=== PATIENT | female | born 1970 | race Caucasian/White ===

== ENCOUNTER 2019-10-13 12:53 | Inpatient (IN) | payer BC ==
[2019-10-13] MEDS ORDERED: MORPHINE 4 MG/ML SYR ONE (14:21)
[2019-10-13] MEDS ORDERED: ONDANSETRON 4 MG/2 ML VIAL ONE ×2 (14:21→16:43)
[2019-10-13 14:54] LABS: Albumin 3.3 g/dL (3.4-5.0); Bilirubin Direct 0.8 mg/dL (0-0.2); Bilirubin Total 2.7 mg/dL (0.2-1.0); Potassium 3.2 mmol/L (3.5-5.1); Protein, Total 7.4 g/dL (6.4-8.2)
[2019-10-13 15:06] LABS: Urine Bacteria >50 /HPF (<20); Urine Culture Reflex Order NOT NEEDED; Urine Mucus 1+ /HPF (NONE SEEN); Urine RBC <5 /HPF (NONE SEEN)
[2019-10-13 15:06] LABS: Urine Blood TRACE (NEG); Urine Glucose NEGATIVE (NEG); Urine Protein NEGATIVE (NEG)
[2019-10-13] MEDS ORDERED: MEPERIDINE HCL 50 MG/ML ONE (15:14)
[2019-10-13 15:17] LABS: Absolute Lymphocytes (CBC) 0.8 K/uL (0.7-4.9); Basophils % 0.7 % (0-1.3); Hematocrit 37.7 % (36.0-45.0); Lymphocytes % 10.9 % (15.3-44.8); MPV 7.3 fL (7.6-11.3); RBC Red Blood Cell Count 4.07 M/uL (3.86-4.86)
--- NOTE | 2019-10-13 15:45 | RAD REPORT ---
EXAM DESCRIPTION: CT - Abdomen Pelvis W Contrast - 10/13/2019 3:24 pm CLINICAL HISTORY: Abdominal pain COMPARISON: none. TECHNIQUE: Computed axial tomography of the abdomen pelvis was obtained. 100 cc Isovue-300 was admin istered intravenously. Oral contrast was not requested which limits evaluation of bowel. All CT scans are performed using dose optimization technique as appropriate and may include automated exposure control or mA/KV adjustment according to patient size. FINDINGS: The liver, spleen, pancreas, adrenal and kidneys appear unremarkable. Several small appendicoliths. The appendix extends superiorly from the cecum. The appendix is dilated . Several air bubbles lie adjacent to the appendix. Marked surrounding inflammatory changes. Small to moderate amount of ascites Umbilical hernia containing fat. Mild stranding within the fat may indicate inflammation. The neck me asures 18 millimeters. IMPRESSION: Perforated appendicitis
[2019-10-13] MEDS ORDERED: CEFTRIAXONE 1000 MG/VIAL ONE (16:05)
[2019-10-13] MEDS ORDERED: NA CHLORIDE 0.9% 1,000 ML ONE (16:12)
[2019-10-13] MEDS ORDERED: PIPER/TAZO/NS 3.375gm 3.375 GM/100 ML BAG ONE (16:12)
--- NOTE | 2019-10-13 16:12 | ER ---
Nurse's Notes [facility] Name: Tammy Gil Age: 49 yrs Sex: Female : 1970 Arrival Date: 10/13/2019 Time: 12:58 Bed 24 Private MD: Diagnosis: Acute appendicitis with generalized peritonitis-with perforation Presentation: 10/13 12:58 Presenting complaint: Patient states: diffuse abd pain, nausea started last night. sv Transition of care: patient was not received from another setting of care. Onset of symptoms was October 12, 2019. Care prior to arrival: None. 12:58 Method Of Arrival: Wheelchair sv 12:58 Acuity: WILFRID 3 sv 13:00 Initial Sepsis Screen: Does the patient meet any 2 criteria? No. Patient's initial ls4 sepsis screen is negative. Does the patient have a suspected source of infection? No. Patient's initial sepsis screen is negative. 22:57 Risk Assessment: Do you want to hurt yourself or someone else? Patient reports no ls4 desire to harm self or others. Triage Assessment: 14:03 General: Appears uncomfortable, Behavior is cooperative, flat. 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 - Social history:: Smoking status: Patient/guardian denies using tobacco. - Ebola Screening: : No symptoms or risks identified at this time. Screenin:00 Abuse screen: Denies threats or abuse. Denies injuries from another. Nutritional ls4 screening: No deficits noted. Tuberculosis screening: No symptoms or risk factors identified. Fall Risk None identified. Assessment: 13:10 Pain: Complains of pain in abdomen Pain currently is 10 out of 10 on a pain scale. ls4 Neuro: No deficits noted. Cardiovascular: No deficits noted. Respiratory: No deficits noted. GI: Bowel sounds hypoactive in right upper quadrant, left upper quadrant, right lower quadrant and left lower quadrant Abdomen is tender to palpation X 4 quads. Guarding noted. : No deficits noted. 14:34 Reassessment: Patient and/or family updated on plan of care and expected duration. Pain ls4 level reassessed. Vital Signs: 13:00 BP 123 / 64; Pulse 92; Resp 22; Temp 98.5; Pulse Ox 100% ; Weight 81.65 kg; Height 5 sv ft. 6 in. (167.64 cm); 14:33 BP 122 / 60; Pulse 78; Resp 20; Temp 98.4; Pulse Ox 100% on R/A; Pain 9/10; ls4 13:00 Body Mass Index 29.05 (81.65 kg, 167.64 cm) sv ED Course: 12:58 Patient arrived in ED. as 13:00 Triage completed. sv 13:00 Patient has correct armband on for positive identification. Bed in low position. Call ls4 light in reach. Side rails up X 1. 13:00 No provider procedures requiring assistance completed. ls4 13:01 Arm band placed on. sv 13:10 potline monitor on. Pulse ox on. NIBP on. Warm blanket given. Pillow given. Verbal ls4 reassurance given. Diet: Patient is NPO. 13:53 Moose Leos FNP-C is PHCP. la1 13:53 Bennett Chirinos MD is Attending Physician. la1 14:01 Karma Kearney, JENNIFER is Primary Nurse. ls4 14:12 Initial lab(s) drawn, by me. Inserted saline lock: 20 gauge in right antecubital area, ls4 using aseptic technique. Blood collected. 14:42 Urine Culture Sent. lt1 14:43 Urine Microscopic Only Sent. lt1 15:25 CT Abd/Pelvis - IV Contrast Only In Process Unspecified. EDMS 16:11 Octavio Crowley MD is Hospitalizing Provider. la1 16:57 intact. ls4 Administered Medications: 14:32 Drug: morphine 4 mg Route: IVP; Site: right antecubital; ls4 14:32 Drug: Zofran 4 mg Route: IVP; Site: right antecubital; ls4 14:32 Drug: NS 0.9% 1000 ml Route: IV; Rate: 1000 ml; Site: right antecubital; ls4 14:55 Drug: Demerol 50 mg Route: IVP; Site: right antecubital; ls4 15:50 Drug: Rocephin 1 grams Route: IV; Rate: calculated rate; Site: right antecubital; ls4 16:10 Drug: Zosyn 3.375 grams Route: IVPB; Infused Over: 60 mins; Site: right antecubital; ls4 Outcome: 16:12 Decision to Hospitalize by Provider. la1 16:57 Patient left the ED. ss 16:57 Admitted to OR accompanied by nurse, family with patient, via stretcher, with chart, ls4 Report called to OR NURSE AT BEDSIDE. 16:57 Condition: unchanged ls4 16:57 Discharge instructions given to patient, family, Instructed on the need for admit, ls4 Demonstrated understanding of instructions. Signatures: Dispatcher [employer] EDCaro Mortensen, RN RN Portia Edwards Shelby, RN RN ss Moose Leos, FOUR SLIDE MACHINE OPERATOR-C FOUR SLIDE MACHINE OPERATOR-Christine1 Karma Kearney RN RN ls4 Taryn Moon [facility]
--- NOTE | 2019-10-13 16:13 | EDPHYS ---
Physician Documentation [facility] Name: Tammy Gil Age: 49 yrs Sex: Female : 1970 Arrival Date: 10/13/2019 Time: 12:58 Bed 24 Private MD: TRINO Physician Bennett Chirinos HPI: 10/13 14:25 This 49 yrs old Female presents to ER via Wheelchair with complaints of la1 Abdominal Pain. 14:31 This 49 yrs old Female presents to ER via Wheelchair with complaints of la1 Abdominal Pain. 14:25 The patient presents with abdominal pain. la1 14:31 The patient presents with abdominal pain that is diffuse. Onset: The symptoms/episode la1 began/occurred this morning. The symptoms do not radiate. Associated signs and symptoms: Pertinent positives: nausea, Pertinent negatives: diarrhea, vomiting. The symptoms are described as sharp. Modifying factors: The symptoms are alleviated by nothing, the symptoms are aggravated by nothing. Severity of pain: At its worst the pain was severe. The patient has not experienced similar symptoms in the past. MANAGER CATH LAB: 13:00 LMP N/A - Hysterectomy ls4 Historical: - Allergies: 13:00 No Known Allergies; sv - PMHx: 13:00 None; sv - PSHx: 13:00 ; sv - Immunization history:: Adult Immunizations up to date. - Social history:: Smoking status: Patient/guardian denies using tobacco. - Ebola Screening: : No symptoms or risks identified at this time. ROS: 14:32 Constitutional: Negative for fever, chills, and weight loss, Eyes: Negative for injury, la1 pain, redness, and discharge, ENT: Negative for injury, pain, and discharge, Neck: Negative for injury, pain, and swelling, Cardiovascular: Negative for chest pain, palpitations, and edema, Respiratory: Negative for shortness of breath, cough, wheezing, and pleuritic chest pain, Back: Negative for injury and pain, : Negative for injury, bleeding, discharge, and swelling, MS/Extremity: Negative for injury and deformity, Neuro: Negative for headache, weakness, numbness, tingling, and seizure. 14:32 Abdomen/GI: Positive for abdominal pain, nausea. Exam: 14:32 Constitutional: This is a well developed, well nourished patient who is awake, alert, la1 and in no acute distress. Head/Face: Normocephalic, atraumatic. Eyes: Pupils equal round and reactive to light, extra-ocular motions intact. Periorbital areas with no swelling, redness, or edema. ENT: Mucous membranes moist. Neck: Trachea midline, no thyromegaly or masses palpated, and no cervical lymphadenopathy. Supple, full range of motion without nuchal rigidity, or vertebral point tenderness. No Meningismus. Chest/axilla: Normal chest wall appearance and motion. Nontender with no deformity. No lesions are appreciated. Cardiovascular: Regular rate and rhythm with a normal S1 and S2. No gallops, murmurs, or rubs. Normal PMI, no JVD. No pulse deficits. Respiratory: Lungs have equal breath sounds bilaterally, clear to auscultation. No rales, rhonchi or wheezes noted. No increased work of breathing, no retractions or nasal flaring. Back: No spinal tenderness. No costovertebral tenderness. Full range of motion. 14:32 Abdomen/GI: Inspection: obese Bowel sounds: normal, in all quadrants, Palpation: soft, in all quadrants, moderate abdominal tenderness, in all quadrants. Vital Signs: 13:00 BP 123 / 64; Pulse 92; Resp 22; Temp 98.5; Pulse Ox 100% ; Weight 81.65 kg; Height 5 sv ft. 6 in. (167.64 cm); 14:33 BP 122 / 60; Pulse 78; Resp 20; Temp 98.4; Pulse Ox 100% on R/A; Pain 9/10; ls4 13:00 Body Mass Index 29.05 (81.65 kg, 167.64 cm) sv MDM: 13:54 Patient medically screened. la1 16:09 Differential diagnosis: AAA, acute coronary syndrome, appendicitis, bowel obstruction, la1 cholecystitis, Cholelithiasis, diverticulitis, Endometriosis, gastritis, gastroesophageal reflux disease, GI Bleed. Data reviewed: vital signs, nurses notes, lab test result(s), radiologic studies, I have discussed the patient's presentation/case with the attending Emergency Department Physician; and as a result, I will admit patient. Data interpreted: Pulse oximetry: on room air is 100 %. Counseling: I had a detailed discussion with the patient and/or guardian regarding: the historical points, exam findings, and any diagnostic results supporting the discharge/admit diagnosis, lab results, radiology results, the need for further work-up and treatment in the hospital. Physician consultation: Octavio Crowley MD was called at 16:00, was contacted at 16:00, regarding admission, to the operating room, and will see patient in ED, immediately, in the emergency department to see patient at 16:10. 10/13 14:19 Order name: Basic Metabolic Panel; Complete Time: 15:14 10/13 14:19 Order name: CBC with Diff; Complete Time: 15:26 10/13 14:19 Order name: Creatinine for Radiology; Complete Time: 15:14 10/13 14:19 Order name: Hepatic Function; Complete Time: 15:14 10/13 14:19 Order name: Lipase; Complete Time: 15:14 10/13 14:31 Order name: Urine Microscopic Only; Complete Time: 15:14 10/13 14:19 Order name: CT Abd/Pelvis - IV Contrast Only; Complete Time: 15:54 10/13 14:31 Order name: Urine Culture 10/13 14:34 Order name: Urine Dipstick--Ancillary (enter results); Complete Time: 15:14 10/13 14:34 Order name: Urine --Ancillary (enter results); Complete Time: 15:14 10/13 14:19 Order name: IV Saline Lock; Complete Time: 14:33 10/13 14:19 Order name: Labs collected and sent; Complete Time: 14:33 10/13 14:19 Order name: Urine Test (obtain specimen); Complete Time: 14:33 10/13 14:19 Order name: Urine Dipstick-Ancillary (obtain specimen); Complete Time: 14:33 la Administered Medications: 14:32 Drug: morphine 4 mg Route: IVP; Site: right antecubital; ls4 14:32 Drug: Zofran 4 mg Route: IVP; Site: right antecubital; ls4 14:32 Drug: NS 0.9% 1000 ml Route: IV; Rate: 1000 ml; Site: right antecubital; ls4 14:55 Drug: Demerol 50 mg Route: IVP; Site: right antecubital; ls4 15:50 Drug: Rocephin 1 grams Route: IV; Rate: calculated rate; Site: right antecubital; ls4 16:10 Drug: Zosyn 3.375 grams Route: IVPB; Infused Over: 60 mins; Site: right antecubital; ls4 Disposition: 10/14 06:08 Co-signature as Attending Physician, Bennett Chirinos MD I agree with the assessment and luther plan of care. Disposition: 10/13/19 16:12 Hospitalization ordered by Octavio Crowley for Inpatient Admission. Preliminary diagnosis is Acute appendicitis with generalized peritonitis - with perforation. - Bed requested for Operating Room. - Status is Inpatient Admission. ss - Condition is Stable. - Problem is new. - Symptoms are unchanged. UTI on Admission? Yes Signatures: Dispatcher [employer] EDMS Caro Vogel, RN Bennett Johnson MD MD cha Smirch, Shelby, RN RN ss Moose Leos, MANAGER COMBINATION-C MANAGER COMBINATION-Cla1 Karma Kearney RN RN ls4 Corrections: (The following items were deleted from the chart) 10/13 16:57 16:12 Hospitalization Ordered by Octavio Crowley MD for Inpatient Admission. Preliminary ss diagnosis is Acute appendicitis with generalized peritonitis - with perforation. Bed requested for Operating Room. Status is Inpatient Admission. Condition is Stable. Problem is new. Symptoms are unchanged. UTI on Admission? Yes. la1
[2019-10-13] MEDS ORDERED: propofoL 200 MG/20 ML VIAL IV ONE (16:42)
[2019-10-13] MEDS ORDERED: FENTANYL CITR 100 MCG/2 ML ONE (16:42)
[2019-10-13] MEDS ORDERED: GLYCOPYRROLATE 0.2 MG/ML SYR ONE ×2 (16:43)
[2019-10-13] MEDS ORDERED: MIDAZOLAM HCL 2 MG/2 ML INJ ONE (16:43)
[2019-10-13] MEDS ORDERED: KETOROLAC 30 MG/ML INJ ONE (16:44)
[2019-10-13] MEDS ORDERED: MORPHINE 10 MG/ML VIAL ONE (16:44)
[2019-10-13] MEDS ORDERED: LIDOCAINE 1% MPF 5 ML VIAL ONE (16:44)
[2019-10-13] MEDS ORDERED: ROCURONIUM 50 MG/5 ML VIAL IV ONE (16:44)
[2019-10-13] MEDS ORDERED: BUPIVACAINE 0.25% PF 30 ML VIAL ONE (17:08)
[2019-10-13] MEDS ORDERED: BUPIVACA 0.5%/EPI 0.0005%/PF 30 ML VIAL ONE (17:21)
[2019-10-13] MEDS: Ringers Lactate 1,000 ML IV ONE ×3 (17:53→17:58)
--- NOTE | 2019-10-13 18:14 | P.OP ---
Preoperative diagnosis: Acute Perforated Appendicitis Postoperative diagnosis: Acute Perforated Appendicitis Primary procedure: Laparoscopic Appendectomy Secondary procedure: Laparoscopic Abdominal Washout Other procedure(s): Laparoscopic Adhesiolysis and Reduction of Umbilical Hernia Estimated blood loss: <5cc Specimen: Vermiform Appendix Findings: Umbilical hernia containing omentum, Acute Perforated Appendicitis Complications: None Transferred to: Recovery Room Condition: Good
[2019-10-13] MEDS ORDERED: HYDROCODONE/APAP 7.5/325 MG TAB PO PRN (18:17)
[2019-10-13] MEDS ORDERED: HYDROMORPHONE HCL 1 MG/ML INJ IV PRN (18:17)
[2019-10-13] MEDS: HYDROMORPHONE HCL 2 MG/ML inj ONE ×4 (18:25→19:00)
[2019-10-13] MEDS ORDERED: PROMETHAZINE INJ 25 MG/ML AMP ONE (19:06)
[2019-10-13] MEDS: Ringers Lactate 1,000 ML IV SCH (19:53)
[2019-10-13] MEDS: INSULIN -REGULAR HUMAN 50 UNIT/0.5 ML ML SQ SCH (20:48)
[2019-10-13 21:20] VITALS: BMI 29.0
--- NOTE | 2019-10-13 23:14 | OP ---
Date of Procedure: 10/13/2019 Surgeon: Octavio Crowley MD, Preoperative Diagnosis: Acute perforated appendicitis. Postoperative Diagnosis: Acute perforated appendicitis. Procedure Performed: 1.Laparoscopic appendectomy. 2.Laparoscopic abdominal washout. 3.Laparoscopic adhesiolysis and reduction of umbilical hernia. Estimated Blood Loss: Less than 5 mL. Specimen: Vermiform appendix. Findings: 1.Umbilical hernia containing omentum. 2.Acute perforated appendicitis. Complications: None, transferred to recovery room in good condition. Procedure In Detail: After informed consent was obtained, patient was brought to the operating room, prepped and draped in the usual sterile fashion. After adequate anesthesia achieved, an infraumbili jackson area was anesthetized with 0.25% Marcaine, sharply incised. A 5-mm trocar was introduced in the abdomen without evidence of complication. Insufflation was obtained to 15 mmHg at this time. The ar ea was inspected. There was no injury to vital structures upon entry to the abdomen. Two additional trocars were chosen, one in the right lower quadrant, one in the left lower quadrant. This was floyd larly anesthetized and sharply incised. A 5 mm trocars were introduced in the abdomen without eviden ce of complication. The umbilical trocar was then up-sized to a 12 mm under direct visualization wit hout evidence of complication. Patient was positioned in head down, right side up position. Ratchet ed grasper was used to locate the patient's appendix, was found to be grossly perforated in the right lower quadrant. It was dissected free from the abdominal wall as well as mobilizing portions of the sidewall of the colon along the right colic gutter using the LigaSure device just slightly. Umbilic al hernia was in the way and the omentum was entrapped within this umbilical hernia and as such, a gr asper used to grasp and reduce the hernia and LigaSure was used to ligate the hernia from the hernia sac and the omentum was returned to the normal anatomic position. At this point, then I grasped the appendix, elevated and created a mesoappendiceal window with the [place] retractor and a GARRETT 35 blue load was fired across the base the appendix, good approximation of tissues. The mesoappendix was th en ligated using the LigaSure device. The appendix was then placed in the EndoCatch bag, removed the umbilical trocar, was sent off for pathologic examination. The area was copiously irrigated with ap proximately 3 L of saline until completely clear. The entire abdomen was irrigated at this time lapa roscopically and the patient was positioned in multiple times in multiple different positions to allo w for adequate irrigation and suctioning of the entire contents. After this was performed, the stapl e line was inspected, found to be in good anatomic position without any leakage. The omentum was wra pped around this area and the patient was positioned in neutral position. The remainder of the efflu ent was irrigated out. The umbilical trocar was then inspected. The umbilical trocar was removed an d the umbilical trocar site was closed using a Jerad-Sejal suture passer with 0 Vicryl in interru pted fashion. Good approximation of tissues. The abdomen was then completely desufflated under dire ct visualization without evidence of complication. All trocars were then removed under direct visual ization without evidence of complication. All skin incisions copiously irrigated and closed with a 4 -0 Monocryl in a running fashion. Dermabond placed over top. Patient tolerated procedure well witho ut complication, transferred to PACU in good condition. All counts were correct at the end of case. MARIANELA/LEONARDAL Voice ID: [id number] Report ID: [id number]
[2019-10-13] MEDS ORDERED: PIPER/TAZO/NS 3.375gm 6.750 GM/200 ML BAG ONE (23:27)
[2019-10-13] MEDS: PIPER/TAZO/NS 3.375gm 3.375 GM/100 ML BAG IVPB SCH (23:33)
--- NOTE | 2019-10-14 02:22 | HP ---
Date of Admission: 10/13/2019 Brief History Of Present Illness: Patient is a 49-year-old female who developed abdominal pain beginning yesterday around periumbilical region, however, located in the right lower quadrant, p ain got significantly worse around noon time as such she came to the emergency room with the above-st ated complaints. Patient states that she has never had pain like this before. No sick contacts. No recent travel. Past Medical History: Negative. Past Surgical History: She had a emergently. Allergies: NO KNOWN DRUG ALLERGIES. Medications: None. Social History: She denies smoking, alcohol, or recreational drug use. Review of Systems: A 10-point review of systems other than HPI she admits to fever, chills and some mild low-grade nause a. Physical Examination: Vital signs: At time of examination, blood pressure 123/64, pulse 92, respiratory rate 22, temperatu re 98.5. General: She is awake, alert, oriented. Psychiatric: She is appropriate and conversive. HEENT: She is normocephalic, sclerae icteric. Mucous is moist. Oropharynx clear. Neck: Supple. No JVD. Chest: Normal expansion and excursion. Cardiovascular: Regular rate and rhythm. Pulmonary: Clear to auscultation bilaterally. Abdomen: Soft with positive right lower quadrant focal peritonitis and positive voluntary guarding. Positive involuntary guarding. She has a well-healed lower midline scar as well as umbilical hernia which contains fat. I am unable to reduce it because the patient's generalized abdominal pain at th is time. She has diffuse pain throughout her abdomen and has grossly peritoneal signs, but worse in the right lower quadrant. Extremities: No clubbing, cyanosis, edema. Skin: Warm and dry. Laboratory Data: Reveals a white blood cell count of 7.2, hemoglobin 13.2, hematocrit of 37.7, plate let count is 312, neutrophils 84%. Her sodium 139, potassium 3.2, chloride 107, carbon dioxide 23, B UN 9, creatinine 0.9, glucose is 118, total bilirubin 2.7, direct bilirubin 0.8, AST 103, ALT 99, alk suri phosphatase 123, lipase of 92. UA showed positive nitrite, positive white blood cell count, an d positive bacteria greater than 50. Urine test was negative. She had a CT scan for the a bdomen and pelvis, which shows several small appendicolith. The appendix extends superiorly from the cecum. The appendix was dilated, some of air bubbles lie adjacent to the appendix. Marked surround ing inflammatory changes, small to moderate amount of ascites, umbilical hernia containing fat. Mild stranding within the fat may indicate inflammation. Neck measures 18 mm. This is consistent with a perforated appendicitis. Assessment And Plan: 1.IV fluid hydration. 2.Antibiotic coverage with Zosyn 3.375 IV q.6. 3.I have explained risks, benefits, alternatives laparoscopic possible open appendectomy including b ut not limited to bleeding, infection, damage to surrounding tissues, need for further operation and procedures, the patient agrees to proceed as indicated. MARIANELA/CRISTIANO Voice ID: [id number]
[2019-10-14] MEDS: Ringers Lactate 1,000 ML IV SCH ×2 (04:23→17:06)
[2019-10-14] MEDS: PIPER/TAZO/NS 3.375gm 3.375 GM/100 ML BAG IVPB SCH ×4 (05:11→23:52)
[2019-10-14 05:56] LABS: Magnesium 2.1 mg/dL (1.8-2.4); Phosphorus 2.7 mg/dL (2.5-4.9); Potassium 3.9 mmol/L (3.5-5.1)
[2019-10-14 06:06] LABS: Absolute Lymphocytes (CBC) 0.7 K/uL (0.7-4.9); Basophils % 0.1 % (0-1.3); Hematocrit 30.3 % (36.0-45.0); Lymphocytes % 8.5 % (15.3-44.8); MPV 7.3 fL (7.6-11.3); RBC Red Blood Cell Count 3.24 M/uL (3.86-4.86)
[2019-10-14] MEDS: INSULIN -REGULAR HUMAN 50 UNIT/0.5 ML ML SQ SCH ×4 (07:30→21:00)
[2019-10-14] MEDS ORDERED: INFLUENZA VACCINE (for 3y+) 0.5 ML DOSE IMVAC ONE (08:00)
[2019-10-14] MEDS: ENOXAPARIN 40 MG/0.4 ML SQ SCH (08:50)
[2019-10-14] MEDS ORDERED: POTASSIUM CL SA 10 MEQ TAB PO ONE (09:00)
--- NOTE | 2019-10-14 10:59 | EKG ---
Test Date: 2019-10-14 Test Time: 08:56:02 Director Digital Advertising: CRISELDA MEASUREMENT RESULTS: Intervals: Rate: 119 MN: 148 QRSD: 76 QT: 278 QTc: 391 [place]: P: 49 MN: 148 QRS: 54 T: 21 INTERPRETIVE STATEMENTS: Sinus tachycardia Otherwise normal ECG No previous ECG available for comparison Electronically Signed On 10-14-19 10:58:08 BRAZER ASSEMBLER by Edwin Dobson
[2019-10-14] MEDS: ONDANSETRON 4 MG/2 ML VIAL IV PRN ×2 (12:23→19:58)
[2019-10-14 12:29] LABS: Urine White Blood Cell Casts OK
[2019-10-14 12:30] LABS: Blood Morphology Comment NOT SEEN (NOT SEEN); Platelet Estimate ADEQ
[2019-10-14] MEDS ORDERED: HYDROCODONE/APAP 7.5/325 MG TAB PO PRN (12:45)
[2019-10-14] MEDS: HYDROCODONE/APAP 7.5/325 MG TAB PO PRN ×3 (12:59→23:57)
[2019-10-15 00:30] VITALS: TEMP 98
[2019-10-15] MEDS: Ringers Lactate 1,000 ML IV SCH ×2 (00:32→04:33)
[2019-10-15 01:07] VITALS: O2SAT 94
[2019-10-15 04:55] VITALS: BP 133/75
[2019-10-15] MEDS: PIPER/TAZO/NS 3.375gm 3.375 GM/100 ML BAG IVPB SCH (05:12)
[2019-10-15 05:44] LABS: Absolute Lymphocytes (CBC) 0.7 K/uL (0.7-4.9); Basophils % 0.2 % (0-1.3); Hematocrit 32.1 % (36.0-45.0); Lymphocytes % 8.4 % (15.3-44.8); MPV 7.2 fL (7.6-11.3); RBC Red Blood Cell Count 3.42 M/uL (3.86-4.86)
[2019-10-15 05:55] LABS: Magnesium 2.3 mg/dL (1.8-2.4); Phosphorus 2.3 mg/dL (2.5-4.9); Potassium 3.7 mmol/L (3.5-5.1)
[2019-10-15] MEDS: INSULIN -REGULAR HUMAN 50 UNIT/0.5 ML ML SQ SCH (07:30)
--- NOTE | 2019-10-15 08:07 | P.PN ---
Subjective Date of Service: 10/14/19 Subjective: Improving (Pain much improved, ambulatory, but not much, tolerating PO with mild nausea, no emesis, passing gas) Physical Examination - Vital Signs Temperature: 98.0 F Blood Pressure: 133/75 Pulse: 82 Respirations: 18 Pulse Ox (%): 93 - Physical Exam General: Alert, In no apparent distress, Cooperative Respiratory: Clear to auscultation bilaterally Cardiovascular: Regular rate/rhythm, Normal S1 S2 Gastrointestinal: Other (soft, mild appropriate TTP, ND incisions clean and dry ) - Studies Microbiology Data (last 24 hrs): 10/13/19 14:32 Clean Catch Urine [place] Count - Final >100,000 CFU/ML. 10/13/19 14:32 Clean Catch Urine - Final Escherichia Coli Assessment And Plan - Current Problems (Diagnosis) (1) Perforated appendicitis Current Visit: Yes Status: Acute Plan: S/P Laparoscopic appendectomy for perforated appendicitis - ambulate with assist - encourage PO - incentive spirometry - abdmoinal binder for comfort - likely DC in AM
[2019-10-15] MEDS: ONDANSETRON 4 MG/2 ML VIAL IV PRN (08:11)
[2019-10-15] MEDS: POTASS/SODIUM PHOSPHATE 1 PKT POWD.PACK PO SCH ×2 (08:13→08:35)
[2019-10-15] MEDS: ENOXAPARIN 40 MG/0.4 ML SQ SCH (08:13)
--- NOTE | 2019-10-15 08:14 | P.DS ---
Admission Date: 10/13/19 Discharge Date: 10/15/19 Disposition: ROUTINE DISCHARGE Discharge Condition: GOOD Reason for Admission: Perforated Appendicitis Consultations: none Procedures: Laparoscopic Appendectomy - Problems (1) Perforated appendicitis Current Visit: Yes Status: Acute Brief History of Present Illness: Patient presented w/ perforated appendicits - taken to OR emergently Hospital Course: Patient did well post op s/p laparoscoipic appendectomy - ambulatory, tolerating liquids and some solids, minimal appetitis - return of bowel function - no fever or leukocytosis - pain well controlled with PO predominantly - low grade nausea improved, no emesis Vital Signs/Physical Exam: Temp Pulse Resp BP Pulse Ox 98.0 F 82 18 133/75 93 10/15/19 08:06 10/15/19 08:06 10/15/19 08:06 10/15/19 08:06 10/15/19 08:06 General: Alert, In no apparent distress, Cooperative HEENT: Mucous membr. moist/pink Respiratory: Clear to auscultation bilaterally Cardiovascular: Regular rate/rhythm, Normal S1 S2 Gastrointestinal: Other (soft, mild appropriate TTP, NT, umbilical hernia recurred wtih fat contained. no infection, incisions clean and dry) Neurological: Normal gait, Normal speech Laboratory Data at Discharge: WBC 8.3 K/uL (4.3-10.9) 10/15/19 05:02 Hgb 11.1 g/dL (12.0-15.0) L 10/15/19 05:02 Hct 32.1 % (36.0-45.0) L 10/15/19 05:02 Plt Count 248 K/uL (152-406) 10/15/19 05:02 Sodium 137 mmol/L (136-145) 10/15/19 05:02 Potassium 3.7 mmol/L (3.5-5.1) 10/15/19 05:02 BUN 11 mg/dL (7-18) 10/15/19 05:02 Creatinine 0.82 mg/dL (0.55-1.3) 10/15/19 05:02 Glucose 87 mg/dL (74-106) 10/15/19 05:02 Phosphorus 2.3 mg/dL (2.5-4.9) L 10/15/19 05:02 Magnesium 2.3 mg/dL (1.8-2.4) 10/15/19 05:02 Total Bilirubin 2.7 mg/dL (0.2-1.0) H 10/13/19 14:22 AST 103 U/L (15-37) H 10/13/19 14:22 ALT 99 U/L (12-78) H 10/13/19 14:22 Alkaline Phosphatase 123 U/L (45-117) H 10/13/19 14:22 Lipase 92 U/L (73-393) 10/13/19 14:22 Home Medications: NK [No Home Meds] 10/13/19 Diet: Regular Activity: No lifting more than 10 lbs Followup: Octavio Crowley MD [ACTIVE - CAN ADMIT] -
[2019-10-15] MEDS ORDERED: POTASSIUM 25 MEQ EFFERV TAB PO ONE (09:00)
== END 2019-10-15 10:37 | disposition home or self-care (01) | DRG 340 ==
LOC: ER 12:53 → 2ND 18:19
PROVIDERS: ADMIT Surgery; ATTEND Surgery
PROC: 0DTJ4ZZ Resection of Appendix, Percutaneous Endoscopic Approach (ICD-10-PCS; principal; 2019-10-13 16:30)
DX: K35.32 Acute appendicitis with perforation, localized peritonitis, and gangrene, without abscess (principal)
CPT/HCPCS: 36415; 74177; 80048; 80076; 81003; 81015; 81025; 82947; 83690; 83735; 84100; 85025; 87077; 87086; 87088; 87186; 88304; 93005; 96374; 96375; 99285; J1170; J1650; J2175; J2250; J2405; J2543; J2550; J2704; J3010; J7030; J7120; Q9967

== ENCOUNTER 2019-11-26 12:18 | Day surgery (SDC) | payer BC ==
[2019-11-25 16:48] LABS: Specific Gravity <= 1.005 (1.005-1.030)
[2019-11-26] MEDS ORDERED: Ringers Lactate 1,000 ML IV ONE ×2 (12:50→16:10)
[2019-11-26] MEDS ORDERED: CEFAZOLIN/SWI 1gm 1 GM/10 ML SYR ONE (12:50)
[2019-11-26] MEDS ORDERED: BUPIVACA 0.5%/EPI 0.0005%/PF 10 ML VIAL ONE (14:59)
[2019-11-26] MEDS ORDERED: propofoL 200 MG/20 ML VIAL IV ONE (15:05)
[2019-11-26] MEDS ORDERED: MIDAZOLAM HCL 2 MG/2 ML INJ ONE (15:05)
[2019-11-26] MEDS ORDERED: LIDOCAINE 2% MPF 5 ML VIAL ONE (15:05)
[2019-11-26] MEDS ORDERED: FENTANYL CITR 250 MCG/5 ML ONE (15:05)
[2019-11-26] MEDS ORDERED: NEOSTIGMINE 1 MG/ML -5 ML ONE (15:05)
[2019-11-26] MEDS ORDERED: ROCURONIUM 50 MG/5 ML VIAL IV ONE (15:05)
--- NOTE | 2019-11-26 16:02 | P.OP ---
Preoperative diagnosis: Ventral Abdominal Wall Hernia Postoperative diagnosis: Ventral Abdominal Wall Hernia Primary procedure: Laparoscopic Ventral Abdominal Wall Hernia with mesh Anesthesia: GETA + Local Estimated blood loss: <5cc Specimen: None Findings: Ventral Hernia Supra-Umbilical 4x5cm Complications: None Implants: 11.4cm Ventralite ST with echo positoin Transferred to: Recovery Room Condition: Good
[2019-11-26] MEDS: HYDROMORPHONE HCL 1 MG/ML INJ ONE ×6 (16:10→16:50)
[2019-11-26 16:58] VITALS: O2SAT 100
[2019-11-26] MEDS ORDERED: ONDANSETRON 4 MG/2 ML VIAL ONE (17:29)
[2019-11-26 17:47] VITALS: BP 122/72; TEMP 98.2
[2019-11-26] MEDS ORDERED: HYDROCODONE/APAP 5/325 MG TAB ONE (18:28)
--- NOTE | 2019-11-27 03:24 | OP ---
Date of Procedure: 11/26/2019 Surgeon: Octavio Crowley MD, Preoperative Diagnosis: Ventral abdominal hernia. Postoperative Diagnosis: Ventral abdominal hernia. Procedures Performed: Laparoscopic ventral abdominal hernia repair with mesh. Anesthesia: General endotracheal plus local with 0.5% Marcaine with epinephrine. Estimated Blood Loss: Less than 5 mL. Specimen: None. Findings: Ventral hernia in the supraumbilical position, approximately 4 cm x 5 cm omentum entrapped within. Complications: None. Implants: 11.[address] with Echo Positioning System, mesh used. Disposition: Transferred to recovery room in good condition. Procedure In Detail: After informed consent was obtained, patient was brought to the operating room, prepped and draped in the usual sterile fashion. After adequate anesthesia achieved in the left mid quadrant of the abdomen, I placed a 5 mm 0-degree optical trocar into the abdomen. Insufflation was obtained at 15 mmHg at this time. There was no injury to vital structures upon entry into the abdom en. Additional trocar site chosen in the right mid abdomen. This was similarly anesthetized and sha rply incised and 5 mm trocar was introduced in the abdomen without evidence of complication. The her jessi was appreciated with omentum entrapped within, is approximately 4 cm x 5 cm in size. I removed t he omentum from the position using the LigaSure device and inspected the hernia defect. It was found to be clean at this point with no additional contents. I then desufflated the abdomen and got good apposition of the tissues under desufflation pressure. I brought in an 11.[address] mesh w ith Echo Positioning System and secured to the abdominal wall using absorbable tacks and removed the balloon deployment system at this point. The balloon deployment system was taken out through the 12 mm trocar in the left abdomen. As such, I only used 2 trocars throughout the procedure. After the b alloon deployment system was removed into its entirety, the absorbable fixation tacks were used to se cure the mesh to the anterior abdominal wall using a double crown method with good approximation of t he tissues. I then completely insufflated the abdomen back to 15 mmHg and the area inspected. There was no hemostatic maneuvers required and the area was inspected and the mesh found to be in good pos ition. I then removed the lateral trocar, which was 12 mm in size and closed with a Jerad-Sejal suture passer with a 0 Vicryl interrupted fashion. Good approximation tissues. The abdomen was comp letely desufflated under direct visualization without evidence of complication. Remaining trocars we re removed. All skin incisions copiously irrigated and closed with a 4-0 Monocryl in a running fashi on. Dermabond placed over top. Patient tolerated the procedure well without evidence of complication and transferred to the PACU in good condition. All counts were correct at the end of the case. MARIANELA/CRISTIANO Voice ID: [id number] Report ID: [id number]
== END 2019-11-26 19:05 | disposition home or self-care (01) ==
LOC: OR 12:18
PROVIDERS: ATTEND Surgery
PROC: 0WUF4JZ Supplement Abdominal Wall with Synthetic Substitute, Percutaneous Endoscopic Approach (ICD-10-PCS; principal; 2019-11-26 13:30)
DX: K43.9 Ventral hernia without obstruction or gangrene (principal)
CPT/HCPCS: 81025 ×2; 49652; J2704; J2250; J3010; J1170 ×2; J2710; J0690; J7120 ×2; J2405; C1781

== ENCOUNTER 2023-07-11 06:07 | Day surgery (SDC) | payer BC ==
[2023-07-09 09:30] LABS: Potassium 4.1 mEq/L (3.5-5.1)
--- NOTE | 2023-07-09 12:34 | EKG ---
Test Date: 2023-07-09 Test Time: 08:51:40 Guest House Manager: CASSANDRA MEASUREMENT RESULTS: Intervals: Rate: 74 MN: 178 QRSD: 76 QT: 372 QTc: 412 Bivins: P: 56 MN: 178 QRS: 53 T: 45 INTERPRETIVE STATEMENTS: Normal sinus rhythm Possible Left atrial enlargement Borderline ECG Compared to ECG 10/14/2019 08:56:02 Sinus tachycardia no longer present Electronically Signed On 07-09-23 12:33:32 CDT by Eusebio Lux
[2023-07-11] MEDS ORDERED: Ringers Lactate 1,000 ML IV ONE (06:38)
[2023-07-11] MEDS ORDERED: propofoL 200 MG/20 ML VIAL IV ONE (07:37)
[2023-07-11] MEDS ORDERED: LIDOCAINE 1% MPF 5 ML VIAL ONE (07:37)
[2023-07-11 07:49] LABS: Urine Specific Gravity/Preg 1.025 (1.005-1.030)
[2023-07-11 08:50] VITALS: BP 125/79; TEMP 97.7; O2SAT 99
== END 2023-07-11 08:31 | disposition home or self-care (01) ==
LOC: OR 06:07
PROVIDERS: ATTEND Surgery
PROC: 0DBP8ZX Excision of Rectum, Via Natural or Artificial Opening Endoscopic, Diagnostic (ICD-10-PCS; principal; 2023-07-11 07:30)
DX: Z12.11 Encounter for screening for malignant neoplasm of colon (principal); K64.8 Other hemorrhoids; D12.2 Benign neoplasm of ascending colon; K63.3 Ulcer of intestine; E66.9 Obesity, unspecified; Z68.32 Body mass index [BMI] 32.0-32.9, adult
CPT/HCPCS: 93005; 80048; 36415; 81025; 88305; 45380; J2704; J2001; J7120